=== PATIENT | male | born 1965 | race African-American/Black ===

== ENCOUNTER 2024-07-10 03:35 | Inpatient (IN) | payer OTHER ==
[~2024-07-10] VITALS: Ht 170.2 cm; Wt 122.9 kg
[2024-07-10 05:13] LABS: CHLORIDE 103 mEq/L (98-107); POTASSIUM 3.9 mEq/L (3.5-5.1); SODIUM 138 mEq/L (136-145)
[2024-07-10 05:14] LABS: CARBON DIOXIDE 25 mEq/L (21-32)
[2024-07-10 05:15] LABS: CALCIUM 9.2 mg/dL (8.7-10.4)
[2024-07-10 05:19] LABS: CREATININE 1.2 mg/dL (0.6-1.3); GLUCOSE 129 mg/dL (70-105); UREA NITROGEN BLOOD 21 mg/dL (9-23)
[2024-07-10 05:21] LABS: TROPONIN I HIGH SENSITIVITY 8 ng/L (3.0-53)
[2024-07-10 05:38] LABS: INR 1.1; PARTIAL THROMBOPLASTIN TIME 26.2 sec (23.4-31.0); PROTHROMBIN TIME 11.9 sec (9.6-11.0)
[2024-07-10 05:40] LABS: ETHANOL BLOOD < 10 mg/dL (<10)
[2024-07-10] MEDS: ACETAMINOPHEN 325MG TABLET PO ONE (05:45)
[2024-07-10 10:18] LABS: CLARITY URINE CLEAR (CLEAR); COLOR URINE YELLOW (YELLOW); GLUCOSE URINE NEGATIVE (NEGATIVE); KETONES URINE NEGATIVE (NEGATIVE); LEUKOCYTE ESTERASE URINE NEGATIVE (NEGATIVE); NITRITE URINE NEGATIVE (NEGATIVE); OCCULT BLOOD URINE NEGATIVE (NEGATIVE); PROTEIN URINE NEGATIVE (NEGATIVE); SPECIFIC GRAVITY URINE 1.042 (1.005-1.030); UROBILINOGEN URINE 0.2 E.U./dL (0.2-1.0)
[2024-07-10 10:26] LABS: BASOPHILS % 0.7 % (0.0-2.0); EOSINOPHILS % 0.3 % (0.0-5.0); HEMATOCRIT. 46.2 % (42.0-52.0); HEMOGLOBIN. 15.3 g/dL (14.0-18.0); LYMPHOCYTES % 16.4 % (20.0-50.0); MEAN CORPUSCULAR HEMOGLOBIN 30.4 pg (28.0-32.0); MEAN CORPUSCULAR HGB CONC 33.2 g/dL (31.0-37.0); MEAN CORPUSCULAR VOLUME 91.8 fL (80.0-94.0); MEAN PLATELET VOLUME 9.6 fl (7.4-10.4); MONOCYTES % 5.9 % (2.0-8.0); NEUTROPHILS % 76.7 % (40.0-76.0); PLATELET 199 x1000/uL (130-400); RED BLOOD CELL COUNT 5.03 mill/uL (4.7-6.1); RED CELL DISTRIBUTION WIDTH 12.4 % (11.6-14.6); WHITE BLOOD COUNT 11.7 x1000/uL (4.5-11.0)
[2024-07-10 10:42] LABS: *AMPHETAMINES SCREEN URINE NEGATIVE (NEGATIVE); *BENZODIAZEPINES SCREEN URINE NEGATIVE (NEGATIVE)
[2024-07-10 10:43] LABS: *BARBITURATES SCREEN URINE NEGATIVE (NEGATIVE); *COCAINE SCREEN URINE NEGATIVE (NEGATIVE); CANNABINOID URINE SCREEN NEGATIVE (NEGATIVE); ECSTASY MDMA SCREEN URINE NEGATIVE (NEGATIVE); METHADONE URINE SCREEN NEGATIVE (NEGATIVE); OPIATES URINE SCREEN NEGATIVE (NEGATIVE); PHENCYCLIDINE URINE SCREEN NEGATIVE (NEGATIVE)
[2024-07-10 10:44] LABS: TROPONIN I HIGH SENSITIVITY 8 ng/L (3.0-53)
[2024-07-10 10:46] LABS: ALANINE AMINOTRANSFERASE 28 IU/L (10-49); ASPARTATE AMINOTRANSFERASE 23 IU/L (<34); BILIRUBIN DIRECT 0.4 mg/dL (<=3.0); BILIRUBIN TOTAL 0.9 mg/dL (0.1-1.0); PROTEIN TOTAL 6.7 g/dL (6.0-8.3)
[2024-07-10 12:30] VITALS: BP 157/86; PULSE 50; RESP 16; TEMP 36.7; O2SAT 97
[2024-07-10 12:34] VITALS: BP 157/86; PULSE 50; RESP 16; TEMP 36.8
[2024-07-10] MEDS ORDERED: ASPI-1497 PO (12:39)
[2024-07-10] MEDS ORDERED: ATOR-388 PO (12:39)
[2024-07-10] MEDS ORDERED: DOCUSATE SODIUM 100MG CAPSULE PO PRN (13:00)
[2024-07-10] MEDS ORDERED: ACETAMINOPHEN 325MG TABLET PO PRN (13:00)
[2024-07-10] MEDS: ASPIRIN 81MG TABLET PO SCH (14:32)
[2024-07-10] MEDS: ENOXAPARIN 40MG/0.4ML SYR SUBCUT SCH (14:32)
[2024-07-10 16:00] VITALS: BP 127/72; PULSE 43; RESP 14; TEMP 36.6; O2SAT 97
[2024-07-10 20:00] VITALS: BP 120/57; PULSE 49; RESP 16; TEMP 37; O2SAT 98
[2024-07-10] MEDS: CLOPIDOGREL 75MG TABLET PO SCH (20:54)
[2024-07-10] MEDS: ATORVASTATIN CALCIUM 40MG TABLET PO SCH (20:55)
[2024-07-10] MEDS: ACETAMINOPHEN 325MG TABLET PO PRN (20:55)
[2024-07-11] VITALS: BP 119/70; PULSE 49; RESP 18; TEMP 36.4; O2SAT 97
[2024-07-11 04:00] VITALS: BP 121/72; PULSE 50; RESP 18; TEMP 36.8; O2SAT 96
[2024-07-11 08:00] VITALS: BP 146/85; PULSE 53; RESP 20; TEMP 36.8; O2SAT 98
[2024-07-11] MEDS: ASPIRIN 81MG EC TABLET PO SCH (08:26)
[2024-07-11 12:00] VITALS: BP 129/85; PULSE 46; RESP 13; TEMP 36.7; O2SAT 99
[2024-07-11 16:00] VITALS: BP 128/68; PULSE 43; RESP 17; TEMP 36.9; O2SAT 99
[2024-07-11 20:00] VITALS: BP 106/65; PULSE 46; RESP 12; TEMP 36.6; O2SAT 95
[2024-07-12] VITALS: BP 138/80; PULSE 58; RESP 18; TEMP 36.9; O2SAT 98
[2024-07-12 04:00] VITALS: BP 123/73; PULSE 55; RESP 18; TEMP 36.4; O2SAT 98
[2024-07-12 08:00] VITALS: BP 125/78; PULSE 44; RESP 17; TEMP 36.8; O2SAT 99
[2024-07-12] MEDS: MECLIZINE 12.5MG TABLET PO SCH (09:06)
[2024-07-12] MEDS ORDERED: MECL-299 MT (10:36)
[2024-07-12] MEDS ORDERED: CLOP-31 PO (10:36)
[2024-07-12 11:07] VITALS: BP 125/78; PULSE 44; TEMP 98.2; O2SAT 99
[2024-07-12 12:00] VITALS: BP 120/80; PULSE 46; RESP 18; TEMP 36.6; O2SAT 98
== END 2024-07-12 13:45 | disposition home or self-care (01) | DRG 69 ==
LOC: ER 03:35 → 3WST 08:07 → EDBEDREQ 08:13 → EDBEDREQTM 08:13
PROVIDERS: ADMIT Internal Medicine; ATTEND Internal Medicine
DX: G45.9 Transient cerebral ischemic attack, unspecified (principal); D72.829 Elevated white blood cell count, unspecified; E66.9 Obesity, unspecified; I10 Essential (primary) hypertension; E78.5 Hyperlipidemia, unspecified; I69.341 Monoplegia of lower limb following cerebral infarction affecting right dominant side; Z79.82 Long term (current) use of aspirin; Z79.899 Other long term (current) drug therapy
CPT/HCPCS: 36415; 70496; 70498; 70551; 71045; 80048; 80061; 80076; 80305; 80320; 81003; 83036; 83880; 84484; 85025; 92523; 92610; 93005; 93306; 97166; 99285; A4606; J1650; J8597; G0480